=== PATIENT | female | born 1940 | race Caucasian/White ===

== ENCOUNTER → 2017-01-24 | Outpatient (CLI) | payer MEDICARE ==
[~2017-01-24] MED LIST: ACEBUTOLOL HCL200 MG PO; ADULT LOW DOSE81 MG PO; ALBUTEROL-200 PUFFS/ IH; ALBUTEROL2 PUFFS/17 IN; AMOXICILLIN 50500 MG PO; ASPIR 8181 MG PO; BACTRIM DS 8001 TA1 PO; BENZONATATE200 MG PO; BETAPACE 80MG T80 MG PO; BIAXIN500 MG PO; CHEWABLE ASPIRI81 MG PO; CLOPIDOGREL75 MG PO; DELTASONE5 MG PO; DIGOX0.125 MG PO; ELIQUIS5 MG PO; FLECAINIDE ACET50 MG OR; IBUPROFEN400 MG PO; LANOXIN0.125 MG PO; LEVAQUIN 750 M750 MG PO; LEVAQUIN250 MG PO; LEVOFLOXACIN 5500 MG PO; LIPITOR40 MG PO; MECLIZINE HYDRO25 MG PO; MED FOR ITCHING; MED FOR NEUROPATHY; MEDROL 4MG. DOSE4 MG PO; METAMUCIL3.4 GM/DOS PO; METAMUCIL660 GM PO; METFORMIN500 MG PO; MIRALAX17 GM/DOSE PO; MIRALAX17 GM/PACK PO; MONODOX100 MG PO; OXAZEPAM10 MG PO; PANTOPRAZOLE SO40 MG PO; PREDNISONE 10MG10 MG PO; ROBITUSSIN DM 105 ML PO; STIOLTO RESPIMA1 SPR IH; STOOL SOFTENER240 MG PO; TYLENOL 325MG325 MG PO; [UNRECOGNIZED DRUG - REMARK]
--- NOTE | 2017-01-31 09:27 | RADIOLOGY REPORT PS360 ---
DIG MAMM-SCREEN BJ W/CAD ORDERING PHYSICIAN : Alli Man MD PATIENT AGE: 76 years GENDER: Female COMPARISON: January. Also October 2009 studies and july 2007 studies from [facility] HISTORY:No hormones. Previous s Family history. Sister with breast cancer age 68 postmenopausal urgical excisional biopsy benign left breast. Patient has pectus excavatum and pacemaker on left protruding. TECHNIQUE: Std CC & MLO images were obtained. R2 CAD reviewed. FINDINGS: RIGHT BREAST: On today's CC and axillary cc views there is additional focal area density at the deep lateral right breast cyst towards the posterior margin of image. Warrants additional views. This Density may require rolled cc views cc views may need to be performed to to determine if this is a real density or summation shadow. . This density spans 12.5 mm x 6 mm size on cc view. &. Labeled A There are some small punctate calcifications in this area on cc view most likely benign or possibly vascular. These are also some stable calcifications superior left breast on MLO view which only questionably correlate labeled B. Of these is been seen since 2004 on MLO and appear stable on that projection. . I would suggest starting with a magnification cc spot view to evaluate calcifications as well as the density upper-outer quadrant; followed by MLO spot view of the deep right breast inferiorly. And a 90 degrees spot magnification view of small calcifications superiorly labeled B.. LEFT BREAST: Area of previously identified in the upper-outer quadrant left breast appears stable on mammography; and on today's mammography image set significantly dissipates on the additional nipple profile MLO view. This speaks against significant lesion. However there was a 1 cm solid nodule here on prior ultrasound at 10:00 which would benefit from ultrasound follow-up in the patient returns .. IMPRESSION: . . 1. Right breast. Warrants additional mammogram views Area of focal density at deep axillary right breast on the CC, axillary cc views from today-could merely be summation shadow as as it is difficult to visualize and MLO view.. . There are also some small punctate calcifications in this area seen on cc view. Question correlate with small stable grouping calcification superior right breast labeled B on MLO view 2. Left breast: The density upper-outer quadrant left breast appears stable today's mammograms. Previous left breast ultrasound showed a solid 1 cm nodule in this area at 10 o'clock position; which would benefit from follow-up left breast ultrasound when the patient returns BI-RADS CATEGORY: 0_Incomplete: Need additional imaging . RECOMMENDED FOLLOWUP: ADD ADDITIONAL IMAGING additional mammogram views right breast as in text.; & left breast ultrasound follow-up solid nodule 10:00 (A letter has been sent to the patient regarding results of the study.)
== END ==
LOC: RAD 01-20 13:00
DX: R92.8 Other abnormal and inconclusive findings on diagnostic imaging of breast (principal); Z12.31 Encounter for screening mammogram for malignant neoplasm of breast
CPT/HCPCS: G0202

== ENCOUNTER → 2017-02-17 | Outpatient (CLI) | payer MEDICARE ==
--- NOTE | 2017-02-25 11:12 | RADIOLOGY REPORT PS360 ---
DIG MAMM- BJ ADD VIEWS W/CAD, US BREAST-LT COMPLETE W/AXILLA, US BREAST-RT COMPLETE W/AXILLA Ordering Physician: Venita Peralta APRN Patient Age: 76 years Female COMPARISON: January 12, 2017 and January 2016 screening mammogram. But also 2010 mammogram. Also 2010 mammogram Previous left breast ultrasound July 19, 2016 INDICATION: Follow-up calcifications and densities bilateral seen on recent screening mammogram Patient has pectus excavatum and difficult to positioned for breast imaging. TECHNIQUE: FINDINGS: Relatively dense for age slightly decreases sensitivity mammography,. Inhomogeneous breast.. Mild asymmetry BILATERAL DIAGNOSTIC MAMMOGRAM WITH SPOT VIEWS LEFT BREAST. Area of minimal asymmetric density lateral left breast cc view been present since 2016, no appreciable change here.. Density at the superior left breast compresses out on the spot MLO view and speak against a significant feature. It also appears stable since 2016 Remainder the left breast appears stable. There are scattered small calcifications seen diffusely throughout the left breast most compatible with adenosis. RIGHT BREAST.: Small grouping of calcifications upper-outer quadrant right breast. These are better seen on today's studies. Favor more likely benign calcifications which today back to 2010 cc exam. These have have been seen previously but appear very slightly more evident with very slight additional variability on today's studies. Although Stereotactic biopsy would is considered for definitive diagnosis & given the slight variation of forms I favor these long-standing tiny more likely benign, thus6 months follow-up would be reasonable.. Notices patient often has return visit for densities due to her asymmetric a fairly dense breasts for age Areas of density lateral right breast seem to dissipate on today's spot views. Subsequent ultrasound reveals no suspicious mass or nodule ====== BILATERAL BREAST ULTRASOUND including axillary survey RIGHT BREAST ULTRASOUND INCLUDING AXILLARY SURVEY.. Survey of the entire breast reveals no suspicious nodule or mass. Moderately dense breasts. No remarkable cyst.. Small benign-appearing axillary lymph nodes. LEFT BREAST ULTRASOUND including axillary survey Survey the entire left breast including axillary survey reveals no significant new findings. The vague area at 10:00 is similar to previous studies at axial appears to be elongated glandular tissue. No areas of significant concern. No cyst. No no discrete solid mass. Moderately dense breasts for age. Benign axillary lymph nodes observed.. IMPRESSION./Summary 1. Dense breasts for age with inhomogeneous character and calcifications bilaterally. Mammography is decreased sensitivity in breast of this character 2.. Right breast Small grouping of calcifications upper outer quadrant right breast labeled B... Similar calcifications, on multiple previous studies dating back to even 2009. More Likely benign calcifications particularly in this age patient. However because a few additional tiny calcifications and subtle varied forms of these calcifications would suggest follow-up in 6-9 months.. 3. Densities seen both right left breast seem to compress out with no areas of concern on subsequent ultrasound either breast BI-RADS CATEGORY: 3_Probably Benign-Short Term F/U RECOMMENDED FOLLOWUP: Follow-up right mammogram calcifications 6-9 months (A letter has been sent to the patient regarding results of the study.)
== END ==
LOC: RAD 14:10
DX: R92.8 Other abnormal and inconclusive findings on diagnostic imaging of breast (principal)
CPT/HCPCS: G0204